=== PATIENT | female | born 2000 | race Caucasian/White ===

== ENCOUNTER 2022-12-11 16:35 | Emergency (ER) | payer BC, SELFPAY ==
[2022-12-11 17:01] VITALS: BP 101/68; PULSE 74; RESP 16; TEMP 36.8; O2SAT 99; BMI 29.5
--- NOTE | 2022-12-11 17:15 | CRLHL7_ITS ---
For Patients: As a result of the Century Cures Act, medical imaging exams and procedure reports are released immediately into your electronic medical record. You may view this report before your referring provider. If you have questions, please contact your health care provider. INDICATION: Leg pain and swelling. Seventeen weeks . TECHNIQUE: Ultrasound venous duplex lower left extremity. Compression venous exam was performed using harman-scale, color Doppler, and spectral Doppler analysis. COMPARISON: None. FINDINGS: Deep veins: Sonographic imaging demonstrates the left common femoral, deep femoral, superficial femoral, popliteal, posterior tibial and the contralateral right common femoral veins to be fully compressible with normal color Doppler blood flow. Superficial veins: Greater saphenous vein is fully compressible. No popliteal cyst. IMPRESSION: Normal left lower extremity venous ultrasound, no sign of deep venous thrombosis. Dictated by Aris Thompson MD @ 12/11/2022 6:37:36 PM (Electronically Signed)
--- NOTE | 2022-12-11 17:36 | ED.GENADULT ---
HPI - General Adult General Chief complaint: Extremity Pain/Injury, Lower Stated complaint: 17 weeks , l. leg pain Time Seen by Provider: 12/11/22 17:30 Source: patient Mode of arrival: ambulatory Limitations: no limitations History of Present Illness HPI narrative: Patient is a 22-year-old young woman who is 17 weeks with her 1st has been having some pain in her left calf for the past few days. 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 She had gone to the chiropractor today for some soreness in her hip, mentioned the calf, which led to a recommendation to call her clinic, which led to a recommendation to come to the ER. She has not had any swelling or redness. She has not had chest pain or shortness of breath. She has not had a history of DVT or PE, and aside from her grandmother having multiple mini strokes, there is no family history of hypercoagulability. has been uneventful with the exception of nausea. Related Data Home Medications Medication Instructions Recorded Confirmed cetirizine 10 mg tablet 10 mg PO DAILY 12/11/22 12/11/22 fluticasone 250 mcg-salmeterol 50 1 ea inhalation BID 12/11/22 12/11/22 mcg/dose blistr powdr for inhalation (Advair Diskus) montelukast 10 mg tablet 10 mg PO DAILY 12/11/22 12/11/22 ondansetron 4 mg disintegrating mg PO 12/11/22 tablet sertraline 50 mg tablet PO 12/11/22 Allergies Allergy/AdvReac Type Severity Reaction Status Date / Time latex Allergy Mild Rash Verified 12/11/22 17:06 Review of Systems Status of ROS: Reports: 10 or more systems reviewed and unremarkable except as noted in History and below [facility] Social History service: No Exam Narrative: Exam Narrative: Vital signs as noted above. In general, an alert, well-appearing patient. Head: Normocephalic, atraumatic. Eyes: Pupils are equal reactive. Extraocular movements are full. Conjunctivae are normal. ENT: Mucous membranes are moist. Extremities: Well perfused. No edema. She has an area of focal tenderness in the left calf, there is no erythema, no swelling, no fluctuance or defect in the muscle. This area runs from just distal to the posterior knee down to about mid calf. Neurologic: Patient is alert and oriented to person and place. Speech is fluent. Face is symmetric. Moves all extremities equally. Affect: Normal. Skin: Warm and dry. Well perfused. Const: Vital Signs, click to edit/add: Vital Signs - 24 hr 12/11/22 17:01 Temperature 98.2 F Pulse Rate [Pulse Oximeter] 74 Respiratory Rate 16 Blood Pressure [Ri ght Upper Arm] 101/68 Pulse Oximetry 99 Oxygen Delivery Me thod Room Air Documenting provider has reviewed patient's vital signs: yes Course Course Hospital Course: Patient had an ultrasound of the left lower extremity which is read by Radiology as negative for DVT. Symptoms seem to be muscular. She does not have any significant swelling, fluctuance, bruising or hematoma to suggest a muscle tear or plantaris rupture, she does not have any history of significant trauma either. Recommend Tylenol, ice. Keep an eye on this if it changes, if she develops redness or increasing pain or new symptoms such as fever she should be seen again. Vital Signs Vital signs: Initial Vital Signs Temperature 98.2 F 12/11/22 17:01 Temperature Source Temporal Artery Scan 12/11/22 17:01 Pulse Rate 74 12/11/22 17:01 Respiratory Rate 16 12/11/22 17:01 Blood Pressure 101/68 12/11/22 17:01 Blood Pressure Mean 79 12/11/22 17:01 Blood Pressure Position Sitting 12/11/22 17:01 Pulse Oximetry 99 12/11/22 17:01 Oxygen Delivery Method Room Air 12/11/22 17:01 Vital Signs Temperature 98.2 F 12/11/22 17:01 Pulse Rate 74 12/11/22 17:01 Respiratory Rate 16 12/11/22 17:01 Blood Pressure 101/68 12/11/22 17:01 Pulse Oximetry 99 12/11/22 17:01 Oxygen Delivery Method Room Air 12/11/22 17:01 Temperature 98.2 F 12/11/22 17:01 Pulse Rate 74 12/11/22 17:01 Respiratory Rate 16 12/11/22 17:01 Blood Pressure 101/68 12/11/22 17:01 Pulse Oximetry 99 12/11/22 17:01 Oxygen Delivery Method Room Air 12/11/22 17:01 Discharge Plan Discharge Clinical Impression: Pain of left calf Patient Disposition: Home, Self-Care Condition: Stable Instructions: Leg Pain (ED) Additional Instructions: Ice or Tylenol if needed. Return for worsening or severe pain, new symptoms such as redness or fever. Activity Level: No Restrictions Discharge Diet: Regular Prescriptions: No Action fluticasone propion-salmeterol [Advair Diskus] 250-50 mcg/dose blister with device 1 ea INHALATION BID cetirizine 10 mg tablet 10 mg PO DAILY montelukast 10 mg tablet 10 mg PO DAILY ondansetron 4 mg tablet,disintegrating PO sertraline 50 mg tablet PO Stand Alone Forms: [employer] Info Instructions
== END 2022-12-11 19:05 | disposition home or self-care (01) ==
LOC: ED 18:36
PROVIDERS: Emergency Provider Emergency Medicine; PCP Physician Assistant Medical
DX: M79.662 Pain in left lower leg (principal); Z3A.17 17 weeks gestation of pregnancy
CPT/HCPCS: 93971; 99283; 99284

== ENCOUNTER 2023-04-26 19:21 | Outpatient (CLI) | payer BC, SELFPAY ==
[2023-04-26 19:25] VITALS: BP 114/73; PULSE 86; RESP 21; TEMP 36.6; O2SAT 98; BMI 36.6
--- NOTE | 2023-04-26 19:58 | ED.GENADULT ---
HPI - General Adult General Time Seen by Provider: 19:59 Date Seen: 04/26/23 Chief complaint: Cough Stated complaint: Cough, chest pain Time Seen by Provider: 04/26/23 19:52 Source: patient and RN notes reviewed Mode of arrival: ambulatory Limitations: no limitations History of Present Illness HPI narrative: Lis is a 23-year-old female that is just over 36 weeks coming in with complaint of chest pain and cough, headache, jaw pain. She has been sick from post 2 weeks now, started with a sore throat. She had a negative strep and negative COVID done. 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 She has not had any fevers. This morphed into cough, congestion, body aches, otalgia but never any GI symptoms with that. Today she started having more chest discomfort, there is some pleuritic component with it but just feels like she has got chest discomfort. Patient reports she does have TMJ syndrome but jaw feels different than that. She has headache today. She is wondering if this is moved into bronchitis. Related Data Home Medications Medication Instructions Recorded Confirmed cetirizine 10 mg tablet 10 mg PO DAILY 12/11/22 12/11/22 fluticasone 250 mcg-salmeterol 50 1 ea inhalation BID 12/11/22 12/11/22 mcg/dose blistr powdr for inhalation (Advair Diskus) montelukast 10 mg tablet 10 mg PO DAILY 12/11/22 12/11/22 ondansetron 4 mg disintegrating mg PO 12/11/22 tablet sertraline 50 mg tablet PO 12/11/22 Previous Rx's Medication Instructions Recorded prednisone 20 mg tablet 20 mg PO BID #10 tabs 04/26/23 Allergies Allergy/AdvReac Type Severity Reaction Status Date / Time latex Allergy Mild Rash Verified 04/26/23 20:14 PFSH PFSH Social History Smoking Status: Never smoker How often do you have a drink containing alcohol: never How often do you have six or more drinks on one occasion: Never AUDIT-C Alcohol total score: 0 Non-prescribed substance use: denies use service: No Exam Const: Vital Signs, click to edit/add: Vital Signs - 24 hr 04/26/23 19:25 04/26/23 20:23 04/26/23 20:50 Temperature 97.9 F Pulse Rate [Right Pulse Oximeter] 86 92 Respiratory Rate 21 16 Blood Pressure [Ri ght Upper Arm] 114/73 113/73 Pulse Oximetry 98 98 98 Oxygen Delivery Me thod Room Air Room Air 04/26/23 22:00 04/26/23 22:22 Temperature Pulse Rate [Right Pulse Oximeter] 80 Respiratory Rate 16 Blood Pressure [Ri ght Upper Arm] 109/58 L Pulse Oximetry 100 Oxygen Delivery Me thod Room Air 23-year-old female is alert, interactive, no apparent distress, voice sounds hoarse but she is able to speak in complete sentences. Face atraumatic, sclera clear, pupils equal round reactive. TMs canals without any evidence of infection. Anterior nares normal. Oropharynx tremor co so, no exudates or erythema. Posterior pharynx looks normal. Neck is supple, no cervical adenopathy or masses. Lungs are clear, good air entry, no wheezing or crackles, no accessory muscle use. CV regular rate and rhythm no murmur. No lower extremity edema. Abdomen is gravid, nontender. Documenting provider has reviewed patient's vital signs: yes Course Course Hospital Course: Have discussed with patient the difficulty with her symptoms and the inability to the safely rule out pulmonary embolus without doing a PE study. She is 36 weeks and thus really no significant concern to the fetus for this study. We cannot rule out pulmonary embolus for her. I can do lab work and look at cardiac enzymes and other labs for her which she would like. Discussed doing chest x-ray instead of chest CT PE protocol. Risks and benefits of both approaches reviewed. Ultimately, she has chosen to proceed with chest CT PE protocol which is the only way I can safely completely rule out any concern of pulmonary embolus. Said she has been sick almost 2 weeks, no point in rechecking anything like COVID, would not alter management at this point. Reevaluation(s) Time of Reevaluation #1: 21:21 Reevaluation #1: Reviewed with the patient that her chest CT showing no pulmonary emboli, lungs are completely clear. We did review the mild anemia of her with a hemoglobin of 10.9. She is happy to know that there is nothing significantly wrong but we did review that this is likely just postinflammatory viral cough and maybe some asthma. She would like to try prednisone. She is now 36 weeks, this should be safe for her to take for her asthma if she needs a small dose. Otherwise, she is not having contractions but notes she has not felt the baby move here tonight, maybe has had diminished movement today. Ob will come down and do a NST on her. Time of Reevaluation #2: 22:40 Reevaluation #2: Patient is not passing her NST. We are going to discharge her from here and a we will take her for a biophysical profile. She will not need to remain in the ER for this, we will discharge from the ED in OB will assume care of this patient for the obstetrical issue. Vital Signs Vital signs: Initial Vital Signs Temperature 97.9 F 04/26/23 19:25 Temperature Source Temporal Artery Scan 04/26/23 19:25 Pulse Rate 86 04/26/23 19:25 Pulse Rhythm Regular 04/26/23 19:25 Pulse Strength 3+ Normal 04/26/23 19:25 Respiratory Rate 21 04/26/23 19:25 Blood Pressure 114/73 04/26/23 19:25 Blood Pressure Mean 86 04/26/23 19:25 Blood Pressure Position Sitting 04/26/23 19:25 Pulse Oximetry 98 04/26/23 19:25 Oxygen Delivery Method Room Air 04/26/23 19:25 Vital Signs Temperature 97.9 F 04/26/23 19:25 Pulse Rate 86 04/26/23 19:25 Respiratory Rate 21 04/26/23 19:25 Blood Pressure 114/73 04/26/23 19:25 Pulse Oximetry 98 04/26/23 19:25 Oxygen Delivery Method Room Air 04/26/23 19:25 Temperature 97.9 F 04/26/23 19:25 Pulse Rate 80 04/26/23 22:22 Respiratory Rate 16 04/26/23 22:22 Blood Pressure 109/58 L 04/26/23 22:00 Pulse Oximetry 100 04/26/23 22:22 Oxygen Delivery Method Room Air 04/26/23 22:22 Medical Decision Making Lab Data Lab results reviewed: Yes I reviewed the patient's lab results Labs: Lab Results 04/26/23 Range/Units 20:15 WBC 10.48 (4.50-11.00) K/uL RBC 4.01 (4.00-5.20) m/uL Hgb 10.9 L (12.0-16.0) gm/dL Hct 34.8 (33.0-51.0) % MCV 87 (80-100) fL MCH 27 (26-34) pg MCHC 31 L (32-36) gm/dL RDW Coeff of Hesham 14.0 (11.5-15.5) % Plt Count 192 (140-440) K/uL Neut % (Auto) 74.1 H (42.0-72.0) % Lymph % (Auto) 16.7 L (20-44) % [place] % (Auto) 8.0 (0.0-11.0) % Eos % (Auto) 0.4 (0.0-7.0) % Baso % (Auto) 0.1 (0.0-3.0) % Neut # (Auto) 7.80 H (1.7-7.0) K/uL Lymph # (Auto) 1.80 (0.90-2.90) K/uL [place] # (Auto) 0.80 (0.00-0.90) K/UL Eos # (Auto) 0.04 (0.00-0.50) K/uL Baso # (Auto) 0.01 (0.00-0.30) K/uL Abs Immat Gran (auto) 0.07 (0.00-0.30) K/uL Imm/Tot Granulo (auto) 0.7 % VBG pH 7.378 (7.32-7.43) VBG pCO2 44 (40-50) mmHG VBG pO2 41.6 (25-47) mmHG VBG HCO3 26 (21-28) mmol/L Sodium 138 (135-149) mmol/L Potassium 3.9 (3.6-5.1) mmol/L Chloride 106 (96-114) mmol/L Carbon Dioxide 25 (20-32) mmol/L Anion Gap 7 (7-15) mEq/L BUN 5 (5-24) mg/dL Creatinine 0.4 L (0.5-1.5) mg/dL Estimated Creat Clear 200.19 Estimated GFR 144 ml/min Glucose 85 (60-115) mg/dL Lactate 1.7 (0.5-1.9) mmol/L Calcium 9.3 (8.4-10.6) mg/dL Total Bilirubin 0.3 (0.1-1.5) mg/dL AST 22 (12-35) U/L ALT 18 (4-35) U/L Alkaline Phosphatase 137 (40-150) U/L Total Protein 6.9 (6.0-8.3) g/dL Albumin 3.7 (3.3-5.0) g/dL Imaging Data CT scan - chest: Attestation: I have reviewed the pertinent imaging results. Radiologist's impression: Patient: LIS LAYTON Facility:?[facility] Patient ID:?[id number] Site Patient ID:?[id number]. Site :?[id number] Study:?CT Chest Angio w/ 95cc isovue-370 PE Protocol-04/26/2023 8:30:17 PM Ordering Physician:Mary Chavez Final Report: INDICATION: Cough, shortness of breath, chest pain, 30 weeks TECHNIQUE: CT chest pulmonary PE protocol acquired with 95 cc Isovue 370 IV contrast. COMPARISON: None FINDINGS: Cardiovascular structures: Normal vascular enhancement of the pulmonary arteries, no sign of pulmonary embolism. Heart size is normal. No sign of aneurysm in the thoracic aorta. Mediastinum and emily: No mass or adenopathy. Lungs: Clear. Pleura and pericardium: No effusions. Chest wall and axilla: No mass or adenopathy. Upper abdomen: Unremarkable. Bones: No significant findings. IMPRESSION: No pulmonary embolism or acute intrathoracic abnormality. Please note that all CT scans at this facility use dose modulation, iterative reconstruction, and/or weight-based dosing when appropriate to reduce radiation dose to as low as reasonably achievable. Dictated by Cheryl Dalton MD @ 04/26/2023 8:58:28 PM (Electronic Signature) ECG Data Attestation: I personally reviewed and interpreted this ECG as follows: (Sinus rhythm, 86 beats per minute. No acute ischemic change. QT corrected 418 milliseconds.) Critical Care Time Critical Care Time Critical Care Time: No Discharge Plan Discharge Clinical Impression: Post-viral cough syndrome, Asthma Patient Disposition: Home, Self-Care Condition: Stable Instructions: Acute Cough (ED) Additional Instructions: Stay on current inhalers in medicines, add in prednisone and take as prescribed. This may help with some of the post inflammatory viral cough issues as well as stabilize any component of asthma that might be prominent with your symptoms. Recommend follow-up with your primary care provider if you have ongoing cough or issues. There is mild anemia with hemoglobin being 10.9, can share this when you see your conductor and engineer next. Activity Level: Activity as Tolerated Discharge Diet: Regular Prescriptions: New prednisone 20 mg tablet 20 mg PO BID Qty: 10 0RF No Action fluticasone propion-salmeterol [Advair Diskus] 250-50 mcg/dose blister with device 1 ea INHALATION BID cetirizine 10 mg tablet 10 mg PO DAILY montelukast 10 mg tablet 10 mg PO DAILY ondansetron 4 mg tablet,disintegrating PO sertraline 50 mg tablet PO Follow Up/Referrals: Olive Waters PA-C [Primary Care Provider] - Stand Alone Forms: [employer] Info Instructions
--- NOTE | 2023-04-26 20:06 | CRLHL7_ITS ---
For Patients: As a result of the Century Cures Act, medical imaging exams and procedure reports are released immediately into your electronic medical record. You may view this report before your referring provider. If you have questions, please contact your health care provider. INDICATION: Cough, shortness of breath, chest pain, 30 weeks TECHNIQUE: CT chest pulmonary PE protocol acquired with 95 cc Isovue 370 IV contrast. COMPARISON: None FINDINGS: Cardiovascular structures: Normal vascular enhancement of the pulmonary arteries, no sign of pulmonary embolism. Heart size is normal. No sign of aneurysm in the thoracic aorta. Mediastinum and emily: No mass or adenopathy. Lungs: Clear. Pleura and pericardium: No effusions. Chest wall and axilla: No mass or adenopathy. Upper abdomen: Unremarkable. Bones: No significant findings. IMPRESSION: No pulmonary embolism or acute intrathoracic abnormality. Please note that all CT scans at this facility use dose modulation, iterative reconstruction, and/or weight-based dosing when appropriate to reduce radiation dose to as low as reasonably achievable. Dictated by Cheryl Dalton MD @ 04/26/2023 8:58:28 PM (Electronically Signed)
[2023-04-26 20:23] VITALS: O2SAT 98
[2023-04-26 20:24] LABS: HCO3 VBG 26 mmol/L (21-28); Lactate* 1.7 mmol/L (0.5-1.9); PCO2 VBG 44 mmHG (40-50); PO2 VBG 41.6 mmHG (25-47); pH VBG 7.378 (7.32-7.43)
[2023-04-26 20:27] LABS: Basophils Absolute Auto 0.01 K/uL (0.00-0.30); Basophils Percent Auto 0.1 % (0.0-3.0); Eosinophils Absolute Auto 0.04 K/uL (0.00-0.50); Eosinophils Percent Auto 0.4 % (0.0-7.0); Hematocrit 34.8 % (33.0-51.0); Hemoglobin* 10.9 gm/dL (12.0-16.0); Immature Granulocytes Abs Auto 0.07 K/uL (0.00-0.30); Immature Granulocytes Pct Auto 0.7 %; Lymphocytes Percent Auto 16.7 % (20-44); Mean Corpuscular HGB Conc 31 gm/dL (32-36); Mean Corpuscular Hemoglobin 27 pg (26-34); Mean Corpuscular Volume 87 fL (80-100); Neutrophils Percent Auto 74.1 % (42.0-72.0); Platelet Count* 192 K/uL (140-440); Red Blood Count 4.01 m/uL (4.00-5.20); White Blood Count* 10.48 K/uL (4.50-11.00)
[2023-04-26 20:30] LABS: Slide Review Reflex No
[2023-04-26] MEDS: 0.9 % SODIUM CHLORIDE 1000 ml 1,000 ML 500 ML IV (20:33)
[2023-04-26 20:50] VITALS: BP 113/73; PULSE 92; RESP 16; O2SAT 98
[2023-04-26 20:51] LABS: Albumin* 3.7 g/dL (3.3-5.0)
[2023-04-26 20:52] LABS: Chloride* 106 mmol/L (96-114); Potassium* 3.9 mmol/L (3.6-5.1); Sodium* 138 mmol/L (135-149)
[2023-04-26 20:54] LABS: Anion Gap 7 mEq/L (7-15); Aspartate Amino Transferase* 22 U/L (12-35); Bilirubin Total* 0.3 mg/dL (0.1-1.5); Carbon Dioxide* 25 mmol/L (20-32); Creatinine* 0.4 mg/dL (0.5-1.5); Est. Creatinine Clearance* 200.19; Estimated Glomerular Filt Rate 144 ml/min
[2023-04-26 20:55] LABS: Alanine Aminotransferase* 18 U/L (4-35); Alkaline Phosphatase* 137 U/L (40-150); Blood Urea Nitrogen* 5 mg/dL (5-24); Calcium* 9.3 mg/dL (8.4-10.6); Glucose* 85 mg/dL (60-115); Total Protein* 6.9 g/dL (6.0-8.3)
[2023-04-26 22:00] VITALS: BP 109/58
[2023-04-26 22:22] VITALS: PULSE 80; RESP 16; O2SAT 100
--- NOTE | 2023-04-26 22:46 | CRLHL7_ITS ---
For Patients: As a result of the Century Cures Act, medical imaging exams and procedure reports are released immediately into your electronic medical record. You may view this report before your referring provider. If you have questions, please contact your health care provider. INDICATION: Nonreactive stress test. TECHNIQUE: Ultrasound OB pelvis transabdominal. Real-time harman-scale imaging of the fetus was performed without stress testing. COMPARISON: None.. FINDINGS: Sonographic imaging demonstrates a single living intrauterine gestation. Fetus demonstrates a regular cardiac rate of 134 beats per minute. Fetus has a cephalic orientation. Amniotic fluid volume single deepest pocket 7.0 cm 2/2. motion 2/2. tone 2/2. breathing movements 2/2. IMPRESSION: Single live intrauterine with a biophysical profile 04/03. Dictated by Torsten Wilburn MD @ 04/26/2023 11:50:37 PM (Electronically Signed)
--- NOTE | 2023-04-26 23:57 | PC.OBNST ---
NST Note NST Note Start: 04/26/23 21:44 Freq: ONCE Status: Active Protocol: Document 04/26/23 23:55 AM (Rec: 04/26/23 23:57 AM [id number]) NST Note 1 Para (# of births) 0 EDC 05/22/23 Gestational Age In Weeks & Days 36 Weeks & 2 Days Patient Presented with Complaint(s) of Decreased movement Reactive Yes Appropriate for Gestational Age Yes RN eder Date 04/26/23 Reactive Yes Appropriate for Gestational Age Yes RN yolette Date 04/26/23 OB NST charge Yes Complete NST Note via Write Note Yes The provider's electronic signature indicates the NST is reactive/appropriate for gestational age. *Note to provider: If an addendum is required, open the patient's chart and click on the note under the Nurse/Allied Health tab.
== END 2023-04-26 23:50 | disposition home or self-care (01) ==
LOC: ED 21:27 → OB OUT 22:43 → OB 22:44
PROVIDERS: Emergency Provider Family Medicine; PCP Physician Assistant Medical; Visit Provider Family Medicine
DX: O36.8130 Decreased fetal movements, third trimester, not applicable or unspecified (principal); Z3A.36 36 weeks gestation of pregnancy
CPT/HCPCS: 36415; 59025; 71275; 76819; 80053; 82803; 83605; 85025; 93005; 94761; 99213; 99284; J7030; Q9967

== ENCOUNTER 2023-05-05 22:43 | Outpatient (CLI) | payer BC, SELFPAY ==
[2023-05-05 22:59] VITALS: BP 130/80; PULSE 93
[2023-05-05] MEDS: LACTATED RINGERS 500 ML 500 ML IV (23:54)
[2023-05-06] MEDS: ONDANSETRON 2 MG/ML inj 4 MG IV (00:14)
[2023-05-06 03:40] LABS: Appearance Urine Clear (Clear); Bilirubin Urine Negative (Negative); Blood Urine 3+ (Negative); Color Urine Yellow (Yellow); Glucose Urine Negative (Negative); Ketones Urine 1+ (Negative); Leukocyte Esterase Urine 1+ (Negative); Nitrite Urine Negative (Negative); Protein Urine Trace (Negative); Urobilinogen Urine 0.2 (0.2-1.0)
[2023-05-06 03:48] LABS: Bacteria Urine Few; Squamous Epithelial Cell Urine Few (None-Few)
--- NOTE | 2023-05-06 04:00 | PC.OBNST ---
NST Note NST Note Start: 05/05/23 22:51 Freq: ONCE Status: Active Protocol: Document 05/06/23 03:57 [facility] (Rec: 05/06/23 03:59 [facility] [id number]) NST Note 1 Para (# of births) 0 EDC 05/22/23 Gestational Age In Weeks & Days 37 Weeks & 5 Days Patient Presented with Complaint(s) of Contractions/cramping Reactive Yes Appropriate for Gestational Age Yes TED Severino RN Date 05/06/23 Reactive Yes Appropriate for Gestational Age Yes TED Timmons RN Date 05/06/23 OB NST charge Yes Complete NST Note via Write Note Yes The provider's electronic signature indicates the NST is reactive/appropriate for gestational age. *Note to provider: If an addendum is required, open the patient's chart and click on the note under the Nurse/Allied Health tab.
== END 2023-05-06 04:00 | disposition home or self-care (01) ==
LOC: OB OUT 22:44 → OB 22:44
PROVIDERS: PCP Physician Assistant Medical; Visit Provider Surgery
DX: O47.1 False labor at or after 37 completed weeks of gestation (principal); Z3A.37 37 weeks gestation of pregnancy
CPT/HCPCS: 59025; 81003; 81015; 87086; 99213; J2405; J7120

== ENCOUNTER 2023-05-06 17:24 | Outpatient (CLI) | payer BC, SELFPAY ==
[2023-05-06 17:41] VITALS: BP 129/77; PULSE 107; RESP 20; TEMP 36.8; O2SAT 97
[2023-05-06 20:03] VITALS: BP 119/74; PULSE 81
--- NOTE | 2023-05-06 22:33 | PC.OBNST ---
NST Note NST Note Start: 05/06/23 17:26 Freq: ONCE Status: Active Protocol: Document 05/06/23 22:30 [facility] (Rec: 05/06/23 22:33 [facility] [id number]) NST Note 1 Para (# of births) 0 EDC 05/22/23 Gestational Age In Weeks & Days 37 Weeks & 5 Days Patient Presented with Complaint(s) of Contractions/cramping Reactive Yes Appropriate for Gestational Age Yes TED Severino RN Date 05/06/23 Reactive Yes Appropriate for Gestational Age Yes TED Boyd RN Date 05/06/23 OB NST charge Yes Complete NST Note via Write Note Yes The provider's electronic signature indicates the NST is reactive/appropriate for gestational age. *Note to provider: If an addendum is required, open the patient's chart and click on the note under the Nurse/Allied Health tab.
== END 2023-05-06 22:34 | disposition home or self-care (01) ==
LOC: OB OUT 17:24 → OB 17:25
PROVIDERS: PCP Physician Assistant Medical; Visit Provider Surgery
DX: O47.1 False labor at or after 37 completed weeks of gestation (principal); Z3A.37 37 weeks gestation of pregnancy
CPT/HCPCS: 59025; 99213

== ENCOUNTER 2023-05-08 14:16 | Inpatient (IN) | payer BC, SELFPAY ==
[2023-05-08] VITALS (58 sets, daily range): BP systolic 84–132; BP diastolic 49–82; PULSE 74–118; RESP 16–18; TEMP 36.4–37.1; O2SAT 90–100; BMI 35.4
[2023-05-08 14:13] LABS: Amnisure Rom* POSITIVE
--- NOTE | 2023-05-08 17:18 | P.OBHP_ITS ---
OB - H&P: HPI Labor/Induction History of Present Illness Time Seen by Provider: 17:18 Date Seen: 05/08/23 Chief Complaint: The patient is a 23 year old 1 para 0 at 38.0 weeks gestation by LMP and consistent with 8 week ultrasound , who presents with SROM. Patient has been in early labor off and on for the last 4 days. Had 2 Labor rule out visits this weekend. Today at 1230 she was sitting in bed and felt large gush of fluid. Came to labor and delivery and amnisure was positive. Chief complaint: Maternity : 1 Para: 0 Date of last menstrual period: 08/15/22 Estimated date of delivery: 05/22/23 Gestational age based on last menstrual period: 38 Narrative: Lis Cotter is a 23 year old female History of Present Dating criteria: based on LMP care: good care Ultrasounds: normal 1st trimester US Abnormal ultrasound findings: IMPRESSION: Sonographic gestational age 19 weeks 1 day and sonographic due date 05/29/2023. Sonographic age 1 week behind the clinical age. Estimated weight 27th percentile. Abdominal circumference 21st percentile. Incomplete visualization of the spine due to position. Short-term follow- up recommended. Remainder of the anatomic survey is normal. Repeat ultrasound: IMPRESSION: Normal cervical, thoracic, lumbar and sacral spine. Medical complications: respiratory (Asthma exacerbation requiring prednisone ) Labs Blood type: A (+) positive Rubella: immune RPR/VDLR: nonreactive GBS status: negative HBsAG: negative Review of Systems Status of ROS: Reports: 10 or more systems reviewed and unremarkable except as noted in History and below Meds Home Medications and Allergies Home Medications Medication Instructions Recorded Confirmed Type cetirizine 10 mg tablet 10 mg PO DAILY 12/11/22 05/08/23 History fluticasone 250 mcg-salmeterol 50 1 ea inhalation BID 12/11/22 05/08/23 History mcg/dose blistr powdr for inhalation (Advair Diskus) montelukast 10 mg tablet 10 mg PO DAILY 12/11/22 05/08/23 History ondansetron 4 mg disintegrating 4 mg PO Q12H 12/11/22 05/08/23 History tablet sertraline 50 mg tablet 75 mg PO Q24H 12/11/22 05/08/23 History famotidine 20 mg tablet 20 mg PO BID 05/05/23 05/08/23 History Allergies Allergy/AdvReac Type Severity Reaction Status Date / Time latex Allergy Mild Rash Verified 05/05/23 22:51 OB - H&P: Exam Physical Exam: Vital signs: Temp Pulse BP Pulse Ox 98.2 F 97 124/72 98 05/08/23 17:04 05/08/23 16:03 05/08/23 16:03 05/08/23 13:58 Constitutional: Constitutional: no acute distress Routine HEENT Exam: Head: Present atraumatic and normal inspection ENT: Present mucous membranes moist Routine Neck Exam: Neck: Present full ROM Routine Chest/Breast/Axilla Exam: Chest wall: Absent tenderness Routine Respiratory Exam: Respiratory: Present CTA bilaterally; Absent crackles or wheezes Routine Cardiovascular Exam: Cardiovascular: RRR, S1 and S2 Routine Abdominal Exam: Abdominal: Present soft Detailed Labor and Delivery Exam: Patient Gravid: Yes Dilation (cm): 3 Effacement (%): 80 Cervix position: anterior Consistency: medium Cervical ripeness score: 9 Tachysystole: No Contraction intensity: Moderate Fetus (Single): Station: -2 Amniotic Membrane Status: SROM Routine Back/Spine/Pelvis Exam: Back/Spine: full ROM Routine Skin Exam: Present intact Routine Neurological Exam: Present alert and oriented X3 OB - Problem Based A/P Additional Plan (1) SROM (spontaneous rupture of membranes): Start date: 05/08/23 Start time: 12:30 Problem details: SROM at home at 1230, clear fluid Status: Acute (2) Term : Status: Acute Plan - no significant change since admission to L&D. Maxwell score shows favorable ce rvix. Will start pitocin per protocol. Anticipate Delivery/Labor/Induction Plan Plan: induction Induction method: per pitocin protocol
[2023-05-08] MEDS: LACTATED RINGERS 1000 ML 1,000 ML 125 ML IV ×2 (18:24→20:06)
[2023-05-08] MEDS: ROPIVACAINE 0.2% 100 ml 100 ML 12 MG EPIDURAL (19:45)
[2023-05-08] MEDS: LIDOCAINE 2% (PF) 5 ML VIAL EPIDURAL (19:45)
[2023-05-08] MEDS: fentaNYL 250 MCG/5 ML inj 100 MCG EPIDURAL (19:50)
[2023-05-08] MEDS: PHENYLEPHRINE 100 MCG/ML SYRINGE IVP ×5 (19:55→22:47)
--- NOTE | 2023-05-08 20:01 | PM.ANBPRC ---
[facility] Social History What is your current living situation?: I presently have a place to live Problems where you live: no known problems In the past 12 months, utilities in danger of being shut off: no In the past 12 mos, have been you worried that your food would run out before you had money to buy more?: never true In the past 12 mos, the food you bought just didn't last and you didn't have money to buy more?: never true Smoking Status: Never smoker How often do you have a drink containing alcohol: never How often do you have six or more drinks on one occasion: Never AUDIT-C Alcohol total score: 0 Non-prescribed substance use: denies use How often does anyone, including family, friends and others, physically hurt you: never How often does anyone, including family, friends and others, insult or talk down to you: never How often does anyone, including family, friends and others, threaten you with harm: never How often does anyone, including family, friends and others, scream or curse at you: never service: No Meds Home Medications and Allergies Home Medications Medication Instructions Recorded Confirmed Type cetirizine 10 mg tablet 10 mg PO DAILY 12/11/22 05/08/23 History fluticasone 250 mcg-salmeterol 50 1 ea inhalation BID 12/11/22 05/08/23 History mcg/dose blistr powdr for inhalation (Advair Diskus) montelukast 10 mg tablet 10 mg PO DAILY 12/11/22 05/08/23 History ondansetron 4 mg disintegrating 4 mg PO Q12H 12/11/22 05/08/23 History tablet sertraline 50 mg tablet 75 mg PO Q24H 12/11/22 05/08/23 History famotidine 20 mg tablet 20 mg PO BID 05/05/23 05/08/23 History Allergies Allergy/AdvReac Type Severity Reaction Status Date / Time latex Allergy Mild Rash Verified 05/05/23 22:51 Results Labs Labs: Laboratory Results - last 24 hr 05/08/23 13:57 Membrane Rupture POSITIVE Vital Signs Vital Signs: Last Vital Signs Temp 98.8 F 05/08/23 18:55 Pulse 104 H 05/08/23 20:01 BP 98/57 L 05/08/23 20:01 Pulse Ox 99 05/08/23 19:40 Weight: 96.615 kg Height: 165.1 cm Anesthesia Procedures Epidural Insertion Patient Location: OB Start Time: Stop Time: :15 Start Date: 05/08/23 Stop Date: 05/08/23 Reason for Block: primary anesthetic Patient Position: sitting Performed By: Mervin Torres Preanesthetic Checklist: IV checked, risks and benefits discussed, surgical consent, monitors and equipment checked, pre-op evaluation, timeout performed and anesthesia consent Prep: chlorhexidine gluconate Monitoring: blood pressure monitoring, quality assurance monitor final, continuous pulse oximetry and heart rate Approach: midline Vertebral Space: lumbar (1-5) Needle Type: Tuohy needle Injection Technique: continuous catheter Needle gauge: 17 Needle Length (cm): 10 cm Needle Insertion Depth (cm): 6 Catheter Gauge: 19 Catheter Type: multi-orifice Catheter at skin depth (cm): 12 Test Dose Result: negative and lidocaine 1.5% with epinephrine 1 to 200,000 Events: other
[2023-05-08] MEDS: ePHEDrine sulfate 5 MG/ML inj 10 MG IVP ×2 (20:09→20:33)
[2023-05-08] MEDS: LACTATED RINGERS 1000 ML 1,000 ML 925 ML IV (21:08)
--- NOTE | 2023-05-08 23:34 | PM.OBPNL ---
Subjective Time Seen by Provider: 23:34 Date Seen: 05/08/23 Narrative: Patient has progressed well. We had anticipated starting pitocin, but patient actually felt much stronger contractions and made cervical change without intervention. We have continued expectant management. Received epidural for analgesia with good response. Did have significant hypotension requiring fluid bolus and medications following epidural (had some late decels and loss of variability). FHT have improved. At this time, patient is complete and +2. We discussed with patient the option of laboring down, which patient is agreeable to do at this time. Baby has category 1 strip at this time. Objective Vital Signs: Last Vital Signs Temp 98.4 F 05/08/23 21:01 Pulse 107 H 05/08/23 23:21 Resp 18 05/08/23 21:01 BP 108/55 L 05/08/23 23:21 Pulse Ox 99 05/08/23 19:40 Pelvic Exam Dilation (cm): 10 Station: +2 Contractions Monitor mode: External Contraction Frequency: 2-3 Contraction pattern: Regular Contraction intensity: Strong/Firm Pitocin Rate (mU/min): 0 Assessment Assessment: active labor Station: -2 Amniotic Membrane Status: SROM Status: Category l Heart Rate Baseline: 140 [facility] Variability: Moderate (6-25) Monitor Accelerations: Present Monitor Decelerations: None Plan Plan: - will initiate pushing after period of laboring down - anticipate
[2023-05-09] VITALS (18 sets, daily range): BP systolic 95–148; BP diastolic 53–80; PULSE 81–120; RESP 16–18; TEMP 36.6–36.8; O2SAT 96–98
[2023-05-09] MEDS: LACTATED RINGERS 1000 ML 1,000 ML 525 ML IV (00:34)
[2023-05-09] MEDS: OXYTOCIN 30 unit/500 ML in NS 30 UNIT/500 ML BAG 300 UNIT IVPB (00:46)
--- NOTE | 2023-05-09 01:15 | W.PM.OBVAGDE ---
OB Procedure Vag Delivery Mother Details Mother Details: The patient is a 23 year-old, 1, Para 0, admitted on 05/08/23 at 38.0 Days gestation with SROM and progressed to active labor. : 1 Para: 0 Weeks Gestation: 38.1 Admission Date: 05/08/23 Additional Details Amniotic Membrane Status: SROM Amniotic Membrane Rupture Date: 05/08/23 Amniotic Membrane Rupture Time: 12:30 Amniotic Membrane Fluid Description: Clear Analgesia/Anesthesia Type: Epidural Waterbirth: No Pitcoin: No Intrapartal Events: None Labor Onset: 19:00 Complete: 22:41 Pushin:56 Heart: heart tones during second stage were category 1 Delivery Details Delivery Date: 05/09/23 Delivery Time: 00:39 Route of delivery: Gender: Male Viability: Alive; Heart Rate Present Position at Delivery: OA Delivery Details: Patient was admitted after SROM at 1230 on 05/08/2023. She progressed well with contractions without intervention. Received epidural for analgesia with good response. Patient did have hypotension after epidural requiring additional fluid boluses and medications. Baby did have some late decels during that time, but recovered well once blood pressure improved. She became complete at 2241. She labored down and began pushing at 2356. She pushed very effectively and Delivered over intact perineum via spontaneous vaginal delivery at 0039. Infant was placed on maternal abdomen.? Cord was clamped and cut by FOB after a 30-60 second delay. Nose and mouth were bulb suctioned.? Infant weight 3350 grams. Placenta delivered spontaneously at 0046 and had 3 vessel cord. 2nd degree laceration was repaired with 3-0 Vicryl. NO lidocaine was required due to good analgesia from epidural. QBL 50. Sponge and sharp count are correct. 1 Minute Interval Total Score: 9 5 Minute Interval Total Score: 9 Additional Details Shoulder Dystocia: No Placenta Delivery Time: 00:46 Placental Delivery Description: Spontaneous Delivery repair: Vicryl Blood Loss: 50 Laceration: Perineal - 2nd Degree (and small 1st deg periurethral that did not require repair. ) Episiotomy Description: None Blood Loss Measurement Type: QBL Bakri Used: No Sponge/Need Count Correct: Yes Cord Vessel Description: 3 Vessels Event Summary Status: Mother and were stable after delivery. Disposition: no change
[2023-05-09] MEDS: IBUPROFEN 600 MG TABLET PO ×3 (01:23→19:51)
[2023-05-09] MEDS: ACETAMINOPHEN 500 MG TABLET 1000 MG PO (18:18)
[2023-05-09] MEDS: LANOLIN CREAM 1 APPLIC TOPICAL (21:08)
[2023-05-10 01:16] VITALS: BP 116/75; PULSE 96; RESP 16; TEMP 36.6; O2SAT 98
[2023-05-10] MEDS: IBUPROFEN 600 MG TABLET PO (01:22)
[2023-05-10 07:07] LABS: Hemoglobin* 11.5 gm/dL (12.0-16.0)
--- NOTE | 2023-05-10 07:51 | PM.OBDSVD1 ---
DS: Providers Provider Time Seen by Provider: 07:52 Date Seen: 05/10/23 Date of admission: 05/08/23 14:16 Primary care physician: Olive Waters PA-C Admitting Clinician: Magdalene Newell MD Attending Physician on discharge: Magdalene Newell MD Date of Discharge: 05/10/23 DS: Diagnosis Discharge Diagnosis (1) Term : Status: Acute (2) Normal vaginal delivery: Status: Acute Exam Const: Vital Signs, click to edit/add: Vital Signs - 24 hr 05/09/23 08:04 05/09/23 12:34 05/09/23 16:10 Temperature 97.8 F 98.2 F 97.9 F Pulse Rate [Pulse Oximeter] 91 103 H 103 H Respiratory Rate 16 16 16 Blood Pressure [Le ft Arm] 107/68 111/75 117/80 Pulse Oximetry 96 97 Oxygen Delivery Me thod Room Air Room Air Room Air 05/09/23 19:48 05/10/23 01:16 Temperature 97.9 F 97.8 F Pulse Rate [Pulse Oximeter] 105 H 96 Respiratory Rate 18 16 Blood Pressure [Le ft Arm] 123/80 116/75 Pulse Oximetry 98 98 Oxygen Delivery Me thod Room Air Room Air Common normals: no apparent distress, healthy appearing, alert and well nourished Orientation/consciousness: Yes awake : Uterus: U/1 Lochia: scant Uterus palpation: uterus nontender Neuro: Sensorium/orientation: awake and alert OB - DS: Summary Hospital Course Hospital Course: The patient is a 23 year old G 1 P 0 at 38 weeks gestation that was admitted to the Center on 05/08/23 for SROM. She had an uncomplicated vaginal delivery. She delivered a viable male infant. She is and supplementing. the patient has done well. No concerns Peripartum Data Infant delivery method: Vaginal Laceration description: Perineal - 2nd Degree complications: none [place] Gender: Male Infant Discharge Plan: Home Time Spent with Patient Time attestation: Total time spent providing and/or coordinating discharge services: Discharge Plan Discharge Disposition: Home, Self-Care Date of Admission: 05/08/23 14:16 Attending Provider on Discharge: Rosio Loera Primary Care Provider: Olive Waters Condition: Stable Anticipated Discharge Date/Time: 05/10/23 07:56 Discharge Medications: New cholecalciferol (vitamin D3) [Vitamin D3] 50 mcg (2,000 unit) tablet 100 mcg PO DAILY Qty: 180 3RF acetaminophen 500 mg Tablet 1,000 mg PO Q6H PRNQty: 30 0RF ibuprofen 600 mg Tablet 600 mg PO Q6H PRNQty: 30 0RF Continued fluticasone propion-salmeterol [Advair Diskus] 250-50 mcg/dose blister with device 1 ea INHALATION BID cetirizine 10 mg tablet 10 mg PO DAILY montelukast 10 mg tablet 10 mg PO DAILY Hold Instructions: not needed sertraline 50 mg tablet 75 mg PO Q24H famotidine 20 mg tablet 20 mg PO BID Discontinued ondansetron 4 mg tablet,disintegrating 4 mg PO Q12H Discharge Orders: Discharge Order (Routine); Ordered 05/10/23 Ordered By: Rosio Loera Patient Education: OB Vaginal/Breast Feeding Activity Detail: pelvic rest x 6 weeks (no intercourse or tampons x 6wks) Discharge Diet: Regular Follow Up Appointments: Olive Waters PAKarl [Primary Care Provider] - Magdalene Newell MD [Staff Physician] - (schedule 6 week visit) [facility] Inst[facility]
[2023-05-10 08:00] VITALS: BP 110/72; PULSE 90; RESP 16; TEMP 36.6; O2SAT 98
== END 2023-05-10 12:00 | disposition home or self-care (01) | DRG 560 ==
LOC: OB OUT 14:16 → OB 14:16
PROVIDERS: Surgery; Admitting Provider Family Medicine; PCP Physician Assistant Medical; Visit Provider Family Medicine
DX: O70.1 Second degree perineal laceration during delivery (principal); Z3A.38 38 weeks gestation of pregnancy; Z37.0 Single live birth; O74.6 Other complications of spinal and epidural anesthesia during labor and delivery; I95.89 Other hypotension
CPT/HCPCS: 01967; 36415; 84112; 85018; A9270; J2371; J2795; J3010; J7120

== ENCOUNTER 2023-10-13 04:40 | Emergency (ER) | payer BC, SELFPAY ==
[2023-10-13 04:46] VITALS: BP 130/87; PULSE 102; RESP 16; TEMP 36.2; O2SAT 98; BMI 36.6
--- OUTSIDE RECORDS SUMMARY | 2023-10-13 05:26 | XMS_ITS | Clinical Summary ---
Author Name Unknown Organization [facility] Address [address] [place] [address] Care Team Providers Care Gradall Operator Name Role Phone Unavailable Primary Care Provider Unavailabl e Source Comments Patient records contain information from all sites at [facility]. For routine questions regarding patient records, call [phone] during business hours, M-F 8:00 AM - 5:00 PM Central Time. Record requests for emergency care only can be directed to [phone] at any time.[facility] Family History Medical History Relation Name Comments Healthy adult Father Healthy adult Mother Relation Name Status Comments Father Mother Social History Tobacco Use Types Packs/Day Years Used Date Smoking Tobacco: Never Nutrition Answer Date Recorded Nutrition: EVOO Fat Source Unknown 09/19 Nutrition: Servings of Fruits/Vegetables per Day Not on file 09/19/2022 Dental Answer Date Recorded Dental: Regular Dentist Unknown 09/19/19 23 Sex and Gender Information Value Date Recorded Sex Assigned at Not on file Gender Identity Not on file Sexual Orientation Not on file Last Filed Vital Signs Vital Sign Reading Time Taken Comments Blood Pressure - - Pulse - - Temperature - - Respiratory Rate - - Oxygen Saturation - - Inhaled Oxygen Concentration - - Weight 62.5 kg (137 lb 12.6 oz) 04/20/2016 4:01 PM CDT Height 161 cm (5' 3.39) 04/20/2016 4:01 PM CDT Body Mass Index 24.11 04/20/2016 4:01 PM CDT Plan of Treatment Health Maintenance Due Date Last Done Comments Cervical Cancer Screening 2002 Chlamydia and Gonorrhea Screening 2002 HIV Screening 2002 Hearing Screening during Well Child Visit 2002 Hepatitis C Screening 2002 1 week Well Child Check-Up 2002 1 month Well Child Check-Up 2002 2 month Well Child Check-Up 2002 4 month Well Child Check-Up 2002 6 month Well Child Check-Up 2002 9 month Well Child Check-Up 2002 12 month Well Child Check-Up 2002 15 month Well Child Check-Up 03/13/2003 18 month Well Child Check-Up 06/13/2003 2 year Well Child Check-Up 12/13/2003 30 month Well Child Check-Up 06/13/2004 3 year Well Child Check-Up 12/12/2004 Well Child Check-Up Completed in Past Year 12/12/2004 4 year Well Child Check-Up 12/12/2005 5 year Well Child Check-Up 12/12/2006 6 year Well Child Check-Up 12/13/2007 7 year Well Child Check-Up 12/12/2008 8 year Well Child Check-Up 12/12/2009 9 year Well Child Check-Up 12/12/2010 10 year Well Child Check-Up 12/13/2011 11 year Well Child Check-Up 12/12/2012 12 year Well Child Check-Up 12/12/2013 13 year Well Child Check-Up 12/12/2014 14 year Well Child Check-Up 12/13/2015 15 year Well Child Check-Up 12/12/2016 16 year Well Child Check-Up 12/12/2017 17 year Well Child Check-Up 12/12/2018 18 year Well Child Check-Up 12/13/2019 19 year Well Child Check-Up 12/12/2020 22 year Well Child Check-Up 12/12/2021 23 year Well Child Check-Up 12/12/2022 Well Child Check-Up ([facility]) 12/12/2022 COVID-19 Vaccine (2022-24 season) 2023 07/23/2021, 01/20/2021, 12/16/2020 Influenza Vaccine (#1) 2023 , 06/22/2021, 06/11/2020, Additional history exists Depression Screening (Annual PHQ-2) 08/27/2023 DTaP,Tdap,and Td Vaccines (8 - Td or Tdap) 03/02/2033 03/02/2023, 04/22/2014, 01/28/2007, Additional history exists Hepatitis B Vaccines Completed 01/13/2003, 2002, 2002 Pneumococcal vaccine (0-64 years) Aged Out 08/17/2003, 04/28/2003, 01/13/2003, Additional history exists No longer eligible based on patient's age to complete this topic HPV Vaccines Completed 12/09/2014, 07/27, 06/18/2014 Meningococcal Vaccine Completed 04/09/2018, 014
--- OUTSIDE RECORDS SUMMARY | 2023-10-13 05:26 | XMS_ITS | Referral Summary ---
Author Name Unknown Organization [facility] Address [address] [place] [address] Care Team Providers Care Set Up Machinist Name Role Phone Unavailable Primary Care Provider Unavailabl e Source Comments Patient records contain information from all sites at [facility]. For routine questions regarding patient records, call [phone] during business hours, M-F 8:00 AM - 5:00 PM Central Time. Record requests for emergency care only can be directed to [phone] at any time.[facility] Social History Tobacco Use Types Packs/Day Years [...] 04/20/2016 4:01 PM CDT Plan of Treatment Not on file
--- OUTSIDE RECORDS SUMMARY | 2023-10-13 05:26 | XMS_ITS ---
Author Name Unknown Organization [facility] Address [address] [place] [address] Care Team Providers Care Vice President Planning Name Role Phone Unavailable Unavailable Unavailable Surgery Details Not on file Complications Check Surgery Details section. Procedure Estimated Blood Loss Check Surgery Details section. Procedure Findings Check Surgery Details section. Procedure Specimens Taken Check Surgery Details section.
--- NOTE | 2023-10-13 05:28 | ED_ITS ---
HPI - General Adult General Chief complaint: Back Injury/Pain Stated complaint: Backpain Time Seen by Provider: 10/13/23 04:56 Source: patient Mode of arrival: ambulatory Limitations: no limitations History of Present Illness HPI narrative: 23-year-old female presents the emergency department in the middle of night for evaluation of back pain. This is an ongoing issue. She reports injury 2 years ago. Actually has had a recent MRI and now has had a referral to sports Medicine for management. Reports that she did physical therapy a couple of years ago and continues to occasionally do some stretches but no regular physical therapy program. States that she messaged her provider was given a refill of Flexeril recently but has not seen her provider in person. Reports use of ibuprofen 400 mg 3 times daily and Tylenol 1000 mg 3 times daily with inadequate relief of her pain. Pain is worse with bending, movement. No weakness in the legs, no loss of bowel or bladder function. The MRI did show herniated discs at L3 and L5 per her report with some foraminal narrowing. No new trauma or injury. No rash on the legs. No loss of function. She reports that she was unable to sleep and presents to the emergency department for further management. No fever, no recent signs of illness. Pain does not radiate currently. Has not been on steroids during this recent flare up. Past medical history notable for uncomplicated and delivery as well as a history of asthma. Long-term medications sertraline, Zyrtec, Singulair and Advair. ROS notable for the musculoskeletal symptoms as described above only, otherwise denies times 12 systems. Related Data Home Medications Medication Instructions Recorded Confirmed cetirizine 10 mg tablet 10 mg PO DAILY 12/11/22 10/13/23 fluticasone 250 mcg-salmeterol 50 1 ea inhalation BID 12/11/22 10/13/23 mcg/dose blistr powdr for inhalation (Advair Diskus) montelukast 10 mg tablet 10 mg PO DAILY 12/11/22 10/13/23 sertraline 50 mg tablet 75 mg PO Q24H 12/11/22 10/13/23 famotidine 20 mg tablet 20 mg PO BID 05/05/23 05/08/23 Previous Rx's Medication Instructions Recorded acetaminophen 500 mg tablet 1,000 mg (2 x 500 mg) PO Q6H PRN 05/10/23 #30 tabs cholecalciferol (vitamin D3) 50 100 mcg (2 x 50 mcg (2,000 unit)) 05/10/23 mcg (2,000 unit) tablet (Vitamin PO DAILY #180 tabs D3) ibuprofen 600 mg tablet 600 mg PO Q6H PRN #30 tabs 05/10/23 gabapentin 100 mg capsule 100 - 200 mg (1 - 2 x 100 mg) PO 10/13/23 BID #60 caps Allergies Allergy/AdvReac Type Severity Reaction Status Date / Time latex Allergy Mild Rash Verified 05/05/23 22:51 [facility] Medical History Term ?Z34.90 - Encounter for supervision of normal , unspecified, unspecified trimester (ICD-10) SROM (spontaneous rupture of membranes) Social History What is your current living situation?: I presently have a place to live Problems where you live: no known problems In the past 12 months, utilities in danger of being shut off: no In past 12 months, lack of transportation kept you from medical appts, meetings, work, or getting things needed for daily living: no In the past 12 mos, have been you worried that your food would run out before you had money to buy more?: never true In the past 12 mos, the food you bought just didn't last and you didn't have money to buy more?: never true Smoking Status: Never smoker How often do you have a drink containing alcohol: never How often do you have six or more drinks on one occasion: Never AUDIT-C Alcohol total score: 0 Non-prescribed substance use: denies use How often does anyone, including family, friends and others, physically hurt you : never How often does anyone, including family, friends and others, insult or talk down to you: never How often does anyone, including family, friends and others, threaten you with harm: never How often does anyone, including family, friends and others, scream or curse at you: never service: No Exam Const: Vital Signs, click to edit/add: Vital Signs - 24 hr 10/13/23 04:46 Temperature 97.2 F L Pulse Rate [Pulse Oximeter] 102 H Respiratory Rate 16 Blood Pressure [Ri ght Upper Arm] 130/87 Pulse Oximetry 98 Oxygen Delivery Me thod Room Air Documenting provider has reviewed patient's vital signs: yes Common normals: no apparent distress General appearance: cooperative, comfortable and well kempt HENMT: Common normals: normocephalic Head and scalp: normocephalic Face and sinus: normal facial exam Other: Normal lips, acyanotic. Eye: Common normals: conjunctivae normal General eye: normal appearance of both eyes Conjunctiva: conjunctiva(e) normal Resp: Common normals: normal respiratory effort Effort & inspection: able to speak in complete sentences Back & Pelvis: Common normals: straight leg raise negative bilaterally (Pain is more increased with 1st 15? rather than 30-70 degree arc. Worse o) Thoracic spine/upper back: ROM limited and pain with ROM Other: No point bony tenderness to the thoracic or lumbar spine. Mild tenderness over palpation of left SI joint and paraspinal muscle tenderness. Flexion is limited to about 30? of forward bending, reporting increased pain, extension less than 5?. Spondylolisthesis testing is positive on left, negative on right. Negative axial load. Extremity: Common normals: normal capillary refill and no pedal edema Neuro: Speech: speech normal Gait (neuro): normal gait Motor exam: strength 5/5 throughout Other: Normal sensation to lower legs, normal gait and strength. Psych: Common normals: speech normal Appearance: well kempt Attitude: calm and engaged Activity/motor behavior: appropriate eye contact Speech: normal speech Insight: fair Judgement: judgment good Skin: Common normals: no rashes or lesions noted General skin exam: no rashes or lesions noted Course Course ED Course: Patient with recent MRI, additional x-ray imaging or labs are unlikely to be helpful. Her exam is fitting with the known pathology that she describes. Counseled patient that it is not ideal for us to manage chronic pain in the emergency department in the middle of the night. I encouraged her to make a follow-up appointment right away Sunday morning with her primary care provider to discuss a long-term plan. He peripheral appointment as as planned. I think she could benefit from a steroid burst. I prescribed 40 mg here in the ED then will continue on 20 mg b.i.d. for 5 days. Counseled that is okay to use [id number] sleep aids like Benadryl, melatonin as needed. She is given a incredibly limited supply of for oxycodone tablets, counseled that these cannot be refilled if she comes back to the emergency department. If additional supply is warranted, she would need to get these from her primary care doctor. She can continue her Flexeril and was counseled and given written instructions regarding total daily usage of Tylenol and ibuprofen as her primary means of pain control. I have also given her prescription for gabapentin she may take 100 mg twice daily and increase to 200 mg twice daily prior to her follow-up appointment. Further try to a lowery may be needed. Repeat course of physical therapy is encouraged. Alarm symptoms were reviewed that would warrant ED presentation. She verbalizes understanding and agreement Vital Signs Vital signs: Initial Vital Signs Temperature 97.2 F L 10/13/23 04:46 Temperature Source Temporal Artery Scan 10/13/23 04:46 Pulse Rate 102 H 10/13/23 04:46 Respiratory Rate 16 10/13/23 04:46 Blood Pressure 130/87 10/13/23 04:46 Blood Pressure Mean 101 10/13/23 04:46 Blood Pressure Position Sitting 10/13/23 04:46 Pulse Oximetry 98 10/13/23 04:46 Oxygen Delivery Method Room Air 10/13/23 04:46 Vital Signs Temperature 97.2 F L 10/13/23 04:46 Pulse Rate 102 H 10/13/23 04:46 Respiratory Rate 16 10/13/23 04:46 Blood Pressure 130/87 10/13/23 04:46 Pulse Oximetry 98 10/13/23 04:46 Oxygen Delivery Method Room Air 10/13/23 04:46 Temperature 97.2 F L 10/13/23 04:46 Pulse Rate 102 H 10/13/23 04:46 Respiratory Rate 16 10/13/23 04:46 Blood Pressure 130/87 10/13/23 04:46 Pulse Oximetry 98 10/13/23 04:46 Oxygen Delivery Method Room Air 10/13/23 04:46 Discharge Plan Discharge Instructions: Lumbar Disc Herniation (ED) Additional Instructions: As we discussed, it is not ideal for us to manage long-term pain issues in the emergency department. It is critically important that you make a follow-up appointment in person with your primary care provider this week. As the foundation of her pain control, I would like for you to take Tylenol 1000 mg every 6 hours and ibuprofen 600 mg every 6 hours. You can alternate between the 2 every 3 hours. I have placed you on a prednisone burst, this is a pack of steroids that will help decrease the inflammation in your back and will hopefully heavy feeling much better within just a few days. You may keep using the muscle relaxant that your prescribed on top of all of these medications. For pain control, I have given you a very small supply of oxycodone, 4 tablets. These cannot be refilled if you run out by an ED provider. If you do need more these you must make an in-person appointment with your primary care provider. Hopefully, the prednisone is helpful enough that you do not need any more of these. You may take 1 tablet up to 3 times daily. I have also sent a prescription for gabapentin to your pharmacy. This is a better long-term option if needed but it will need further adjustment. I have started you on a small dose, 1 pill 2 times daily. You may increase this to 1 pill in the morning and 2 in the evening and even up to 4 total pills daily prior to your appointment with your primary care doctor if needed. They may find that they want to prescribe a higher dose of this and that may be the right choice for you. Remember to continue using the Tylenol and ibuprofen even if you do not think they are helpful. Keep your specialist appointment as is currently scheduled. Come to the emergency department if you lose sudden control of your bowel or bladder or are physically unable to move your legs or if they become severely weak to the point where you cannot bear weight. Your provider will likely place a new referral to physical therapy. It is typically helpful for you to bring this paperwork with you to your follow-up appointment. Activity Level: Activity as Tolerated Discharge Diet: Regular Prescriptions: New gabapentin 100 mg capsule 100 - 200 mg PO BID Qty: 60 0RF Rx Instructions: begin with one cap 2x per day. If no relief, increase to 2 caps 2x per day after 24 hours. No Action fluticasone propion-salmeterol [Advair Diskus] 250-50 mcg/dose blister with device 1 ea INHALATION BID cetirizine 10 mg tablet 10 mg PO DAILY montelukast 10 mg tablet 10 mg PO DAILY Hold Instructions: not needed sertraline 50 mg tablet 75 mg PO Q24H famotidine 20 mg tablet 20 mg PO BID acetaminophen 500 mg Tablet 1,000 mg PO Q6H PRNQty: 30 0RF ibuprofen 600 mg Tablet 600 mg PO Q6H PRNQty: 30 0RF cholecalciferol (vitamin D3) [Vitamin D3] 50 mcg (2,000 unit) tablet 100 mcg PO DAILY Qty: 180 3RF Follow Up/Referrals: Olive Waters [facility] [Primary Care Provider] - Stand Alone Forms: [facility] Info Instructions
[2023-10-13] MEDS: hydrOXYzine pamoate 25 MG CAPSULE PO (05:29)
[2023-10-13] MEDS: OXYCODONE 5 MG TABLET PO (05:30)
[2023-10-13] MEDS: predniSONE 10 MG TABLET 40 MG PO (05:30)
== END 2023-10-13 06:00 | disposition home or self-care (01) ==
LOC: ED 05:24
PROVIDERS: Emergency Provider Family Medicine; PCP Physician Assistant Medical
DX: M54.9 Dorsalgia, unspecified (principal)
CPT/HCPCS: 99283; A9270; J7512

== ENCOUNTER 2023-11-27 09:54 | Outpatient (CLI) | payer BC, SELFPAY | END 2023-11-27 09:55 | disposition home or self-care (01) | LOC: INJ CL 09:54 | PROVIDERS: PCP Physician Assistant Medical; Visit Provider Family Medicine | DX: M54.16 Radiculopathy, lumbar region (principal); M51.36 Other intervertebral disc degeneration, lumbar region | CPT/HCPCS: 62323; J0702; Q9966 ==

== ENCOUNTER 2024-03-17 14:05 | Emergency (ER) | payer BC, SELFPAY ==
[2024-03-17] VITALS (9 sets, daily range): BP systolic 118–127; BP diastolic 73–86; PULSE 86–103; RESP 18; TEMP 36; O2SAT 95–98
--- NOTE | 2024-03-17 14:32 | ED.CHESTPAIN ---
HPI - Chest Pain General Date Seen: 03/17/24 Chief Complaint: Chest Pain Stated Complaint: Chest pain, weakness, nausea Time Seen by Provider: 03/17/24 14:19 Source: patient Mode of arrival: ambulatory Limitations: no limitations History of Present Illness HPI narrative: Patient is a 24-year-old female who presents here with a multitude of complaints. She describes chest pain for the last couple hours, the central part of her chest. When I ask about radiation she says she says that is hard to tell because she has chronic back pain in both her upper lower spine and always hurts back there, she notices nausea for the last 6 weeks, that pre seated her chest pain, she has been unable to come about the diagnosis with that with her primary care physician, as she has tried omeprazole. She notes that she will be referred to a specialist for ongoing help with this. She has a history of sinus tachycardia and his is followed by Cardiology. Today she also felt like she might pass out, she tells me she has been eating and drinking normally. There is no vomiting, denies fevers chills, or diarrhea. Denies being , as on control, history of 1 previous vaginal delivery, no personal history of any other cardiac issues in no family history. Her medications are reviewed. She tells me she is followed by a back and neck specialist. Doing physical therapy, but this is not helping. Related Data Home Medications ?Medication ?Instructions ?Recorded ?Confirmed cetirizine 10 mg tablet 10 mg PO DAILY 12/11/22 03/17/24 fluticasone 250 mcg-salmeterol 50 1 ea inhalation BID 12/11/22 03/17/24 mcg/dose blistr powdr for inhalation (Advair Diskus) sertraline 50 mg tablet 50 mg PO Q24H 12/11/22 03/17/24 pregabalin 50 mg capsule (Lyrica) 50 mg PO QDAY 11/06/23 03/17/24 hydrocodone 5 mg-acetaminophen 325 1 tab PO DAILY 03/17/24 03/17/24 mg tablet norethindrone 1 mg-ethinyl 1 tab PO DAILY 03/17/24 03/17/24 estradiol 35 mcg (21) tablet (Nortrel) omeprazole 40 mg capsule,delayed 40 mg PO DAILY 03/17/24 03/17/24 release Allergies Allergy/AdvReac Type Severity Reaction Status Date / Time amoxicillin Allergy Intermediate GI Upset Verified 03/17/24 14:17 latex Allergy Mild Rash Verified 03/17/24 14:17 Review of Systems Status of ROS Reports: 10 or more systems reviewed and unremarkable except as noted in History and below [facility] Medical History Term ?Z34.90 - Encounter for supervision of normal , unspecified, unspecified trimester (ICD-10) SROM (spontaneous rupture of membranes) Social History What is your current living situation?: I presently have a place to live Problems where you live: no known problems In the past 12 months, utilities in danger of being shut off: no In past 12 months, lack of transportation kept you from medical appts, meetings, work, or getting things needed for daily living: no In the past 12 mos, have been you worried that your food would run out before you had money to buy more?: never true In the past 12 mos, the food you bought just didn't last and you didn't have money to buy more?: never true Smoking Status: Never smoker How often do you have a drink containing alcohol: never How often do you have six or more drinks on one occasion: Never AUDIT-C Alcohol total score: 0 Non-prescribed substance use: denies use How often does anyone, including family, friends and others, physically hurt you: never How often does anyone, including family, friends and others, insult or talk down to you: never How often does anyone, including family, friends and others, threaten you with harm: never How often does anyone, including family, friends and others, scream or curse at you: never service: No Exam Narrative Exam Narrative: On examination stabilization room 2, she appears to be in no distress. Pupils equal round reactive to light there is no scleral icterus redness, TMs are normal bilaterally, oropharynx normal JVP is flat chronic chronic upstrokes are normal, cranial nerves 3-12 are normal chest is good air entry bilaterally with no wheezing crackles noted heart sounds are normal, abdomen is soft there is no guarding no organomegaly, slight obesity is noted. She moves all extremities independently well with absence of edema swelling or pain in her lower legs. Skin reveals a no petechiae rashes Const Vital Signs, click to edit/add: Vital Signs - 24 hr 03/17/24 14:11 03/17/24 14:53 03/17/24 15:00 Temperature 96.8 F L Pulse Rate 94 90 Pulse Rate [Pulse Oximeter] 103 H Pulse Rate [orthostatic lying Pulse Oximeter] Pulse Rate [orthostatic standing Pulse Oximeter] Respiratory Rate 18 Blood Pressure Blood Pressure [Right Upper Arm] 118/86 Blood Pressure [orthostatic lying Right Arm] Blood Pressure [orthostatic sitting Right Arm] Blood Pressure [orthostatic standing Right Arm] Pulse Oximetry 97 97 96 Oxygen Delivery Method Room Air 03/17/24 15:02 03/17/24 15:02 03/17/24 15:04 Temperature Pulse Rate 86 Pulse Rate [Pulse Oximeter] Pulse Rate [orthostatic lying Pulse Oximeter] 87 Pulse Rate [orthostatic standing Pulse Oximeter] Respiratory Rate Blood Pressure 123/73 Blood Pressure [Right Upper Arm] Blood Pressure [orthostatic lying Right Arm] 123/73 Blood Pressure [orthostatic sitting Right Arm] Blood Pressure [orthostatic standing Right Arm] Pulse Oximetry 95 96 Oxygen Delivery Method 03/17/24 15:05 03/17/24 15:05 03/17/24 15:05 Temperature Pulse Rate 93 Pulse Rate [Pulse Oximeter] Pulse Rate [orthostatic lying Pulse Oximeter] 100 Pulse Rate [orthostatic standing Pulse Oximeter] 103 H Respiratory Rate Blood Pressure 126/80 Blood Pressure [Right Upper Arm] Blood Pressure [orthostatic lying Right Arm] Blood Pressure [orthostatic sitting Right Arm] 126/80 Blood Pressure [orthostatic standing Right Arm] 127/85 Pulse Oximetry 96 Oxygen Delivery Method 03/17/24 15:07 03/17/24 15:30 03/17/24 16:00 Temperature Pulse Rate 92 91 88 Pulse Rate [Pulse Oximeter] Pulse Rate [orthostatic lying Pulse Oximeter] Pulse Rate [orthostatic standing Pulse Oximeter] Respiratory Rate Blood Pressure 127/85 Blood Pressure [Right Upper Arm] Blood Pressure [orthostatic lying Right Arm] Blood Pressure [orthostatic sitting Right Arm] Blood Pressure [orthostatic standing Right Arm] Pulse Oximetry 97 95 98 Oxygen Delivery Method Documenting provider has reviewed patient's vital signs: yes Course Course ED Course: Repeat EKG at 4:30 a.m., along with point of care troponin are both negative. I reviewed her laboratory tests with her. I do believe that there is is a constellation of things going on with likely some GI reflux, history of sinus tachycardia, anxiety, and the back issues. I think with her primary care physician as the lead physician here, a multi specialty workup would be needed. I explained to her the signs and symptoms of worsening when she should re present, and the importance of fluids. Her test is negative also. Vital Signs Vital signs: Initial Vital Signs Temperature 96.8 F L 03/17/24 14:11 Temperature Source Temporal Artery Scan 03/17/24 14:11 Pulse Rate 103 H 03/17/24 14:11 Respiratory Rate 18 03/17/24 14:11 Blood Pressure 118/86 03/17/24 14:11 Blood Pressure Mean 96 03/17/24 14:11 Blood Pressure Position Sitting 03/17/24 14:11 Pulse Oximetry 97 03/17/24 14:11 Oxygen Delivery Method Room Air 03/17/24 14:11 Vital Signs Temperature 96.8 F L 03/17/24 14:11 Pulse Rate 103 H 03/17/24 14:11 Respiratory Rate 18 03/17/24 14:11 Blood Pressure 118/86 03/17/24 14:11 Pulse Oximetry 97 03/17/24 14:11 Oxygen Delivery Method Room Air 03/17/24 14:11 Temperature 96.8 F L 03/17/24 14:11 Pulse Rate 88 03/17/24 16:00 Respiratory Rate 18 03/17/24 14:11 Blood Pressure 127/85 03/17/24 15:07 Pulse Oximetry 98 03/17/24 16:00 Oxygen Delivery Method Room Air 03/17/24 14:11 Medications Administered Medications: Discontinued Medications Generic Name Dose Route Start Last Admin Trade Name Freq PRN Reason Stop Dose Admin Sodium Chloride 1,000 mls @ 1,000 mls/hr 03/17/24 14:45 03/17/24 16:07 0.9 % Sodium Chloride 1000 Ml IV 03/17/24 15:44 Infused .Q1H RAUL Infusion Sodium Chloride 1,000 mls @ 1,000 mls/hr 03/17/24 15:45 03/17/24 16:47 0.9 % Sodium Chloride 1000 Ml IV 03/17/24 16:44 Infused .Q1H RAUL Infusion Ondansetron HCl 4 mg 03/17/24 14:34 03/17/24 14:58 Ondansetron 2 Mg/Ml Inj IVP 03/17/24 14:35 4 mg ONCE ONE Administration MDM - Chest Pain MDM Narrative Medical decision making narrative: During the evaluation of this patient I considered multiple differential diagnosis is. The life-threatening differential diagnosis include coronary disease/AL, pulmonary embolism, pneumothorax, pneumonia, and aortic dissection. Other differential diagnosis included but were not limited to pericarditis, myocarditis, chest wall pain, GERD, esophageal rupture, rib fracture contusion, pleurisy, as well as other etiologies. I discussed with her that we will do with the chest pain source I will not be able to come up with a diagnosis for her for her chronic nausea, there seems to be an overlying component here of also anxiety and possibly depression. She denies being suicidal at this point. We will also check a test. I was able to review her my chart, her recent liver function tests were slightly elevated. Consistent with more of a fatty liver type situation. Not consistent with the overt hepatitis. Medical Records Data Attestation: I reviewed the patient's medical records. Lab Data Labs: Lab Results 03/17/24 03/17/24 03/17/24 Range/Units 14:33 14:48 16:26 WBC 10.95 (4.50-11.00) K/uL RBC 4.77 (4.00-5.20) m/uL Hgb 13.2 (12.0-16.0) gm/dL Hct 41.2 (33.0-51.0) % MCV 86 (80-100) fL MCH 28 (26-34) pg MCHC 32 (32-36) gm/dL RDW Coeff of Hesham 13.4 (11.5-15.5) % Plt Count 300 (140-440) K/uL Neut % (Auto) 77.4 H (42.0-72.0) % Lymph % (Auto) 16.1 L (20-44) % Arthur % (Auto) 5.3 (0.0-11.0) % Eos % (Auto) 0.4 (0.0-7.0) % Baso % (Auto) 0.2 (0.0-3.0) % Neut # (Auto) 8.50 H (1.7-7.0) K/uL Lymph # (Auto) 1.80 (0.90-2.90) K/uL Arthur # (Auto) 0.60 (0.00-0.90) K/UL Eos # (Auto) 0.04 (0.00-0.50) K/uL Baso # (Auto) 0.02 (0.00-0.30) K/uL Abs Immat Gran (auto) 0.07 (0.00-0.30) K/uL Imm/Tot Granulo (auto) 0.6 % D-Dimer Quant (PE/DVT) < 0.27 (0.00-0.50) ug/ml Sodium 135 (135-149) mmol/L Potassium 3.7 (3.6-5.1) mmol/L Chloride 104 (96-114) mmol/L Carbon Dioxide 21 (20-32) mmol/L Anion Gap 10 (7-15) mEq/L BUN 10 (5-24) mg/dL Creatinine 0.6 (0.5-1.5) mg/dL Estimated GFR 130 ml/min Glucose 130 H (60-115) mg/dL Calcium 9.6 (8.4-10.6) mg/dL HCG, Qual Negative (Negative) POC Troponin I 0.00 L 0.00 L (0.01-0.04) ng/ml Discharge Plan Discharge Clinical Impression: Chest pain, Nausea, Near syncope Patient Disposition: Home, Self-Care Condition: Stable Instructions: Chest Pain (DC), Near Syncope (ED) Additional Instructions: I would suggest follow-up with Cardiology, follow-up with the GI person your primary care physician has UC. I did not find any evidence of heart issues today on the examination or issues with blood clots. I do think there has multiple things going on with you, and I think a concerted workup with your primary care physician is suggested. Return if ongoing signs and symptoms. Keep her fluids up. We will call you if your test is positive Prescriptions: No Action pregabalin [Lyrica] 50 mg capsule 50 mg PO QDAY Hold Instructions: per patient omeprazole 40 mg capsule,delayed release(DR/EC) 40 mg PO DAILY hydrocodone-acetaminophen 5-325 mg tablet 1 tab PO DAILY Nortrel (21) 1- mg-mcg (21) tablet 1 tab PO DAILY fluticasone propion-salmeterol [Advair Diskus] 250-50 mcg/dose blister with device 1 ea INHALATION BID cetirizine 10 mg tablet 10 mg PO DAILY sertraline 50 mg tablet 50 mg PO Q24H Follow Up/Referrals: Olive Waters, [facility] [Primary Care Provider] - Stand Alone [facility] Info Instructions
--- NOTE | 2024-03-17 14:33 | CRLHL7_ITS ---
For Patients: As a result of the Century Cures Act, medical imaging exams and procedure reports are released immediately into your electronic medical record. You may view this report before your referring provider. If you have questions, please contact your health care provider. INDICATION: Chest pain COMPARISON: None. TECHNIQUE: Two radiographic view(s) of the chest. FINDINGS: No substantial pleural effusion. No definite focal pulmonary consolidation. Normal heart size. No acute osseous findings. IMPRESSION: No acute thoracic findings. Dictated by Brannon Hernández MD @ 03/17/2024 3:15:48 PM (Electronically Signed)
[2024-03-17] MEDS: 0.9 % SODIUM CHLORIDE 1000 ml 1,000 ML IV ×2 (14:58→16:07)
[2024-03-17] MEDS: ONDANSETRON 2 MG/ML inj 4 MG IVP (14:58)
--- OUTSIDE RECORDS SUMMARY | 2024-03-17 15:02 | XMS_ITS ---
Author Organization [facility] Address [address] [place] [address] Care Team Providers Care Centerless Grinder Name Role Phone Unavailable Unavailable Unavailable Surgery Details Not on file Complications Check Surgery Details section. Procedure Estimated Blood Loss Check Surgery Details section. Procedure Findings Check Surgery Details section. Procedure Specimens Taken Check Surgery Details section.
--- OUTSIDE RECORDS SUMMARY | 2024-03-17 15:02 | XMS_ITS | Clinical Summary ---
Author Organization [facility] Address [address] [place] [address] Care Team Providers Care System Support Analyst Name Role Phone Unavailable Primary Care Provider Unavailabl e Source Comments Patient records contain information from all sites at [facility]. For routine questions regarding patient records, call [phone] during business hours, M-F 8:00 AM - 5:00 PM Central Time. Record requests for emergency care only can be directed to [phone] at any time.[facility] Family History Medical History Relation Name Comments [...] and Gonorrhea Screening 2002 HIV Screening 2002 Hepatitis C Screening 2002 COVID-19 Vaccine ( season) 2023 07/23/2021, 01/20/2021, 12/16/2020 Depression Screening (Annual PHQ-2) 08/27/2023 Influenza Vaccine (#1) 2024 , 06/22/2021, 06/11/2020, Additional history exists DTaP,Tdap,and Td Vaccines (8 - Td or Tdap) 03/02/2033 03/02/2023, 04/22/2014, 01/28/2007, Additional history exists Hepatitis B Vaccines Completed 01/13/2003, 2002, 2002 Pneumococcal vaccine (0-64 years) Aged Out 08/17/2003, 04/28/2003, 01/13/2003, Additional history exists No longer eligible based on patient's age to complete this topic HPV Vaccines Completed 12/09/2014, 07/27, 06/18/2014 Meningococcal Vaccine Completed 04/09/2018, 014
--- OUTSIDE RECORDS SUMMARY | 2024-03-17 15:02 | XMS_ITS | Referral Summary ---
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 For routine questions regarding patient records, call [phone] during business hours, M-F 8:00 AM - 5:00 PM Central Time. Record requests for emergency care only can be directed to [phone] at any time.[facility] Social History Tobacco Use Types Packs/Day [...]
[2024-03-17 15:05] LABS: Basophils Absolute Auto 0.02 K/uL (0.00-0.30); Basophils Percent Auto 0.2 % (0.0-3.0); Eosinophils Absolute Auto 0.04 K/uL (0.00-0.50); Eosinophils Percent Auto 0.4 % (0.0-7.0); Hematocrit 41.2 % (33.0-51.0); Hemoglobin* 13.2 gm/dL (12.0-16.0); Immature Granulocytes Abs Auto 0.07 K/uL (0.00-0.30); Immature Granulocytes Pct Auto 0.6 %; Lymphocytes Percent Auto 16.1 % (20-44); Mean Corpuscular HGB Conc 32 gm/dL (32-36); Mean Corpuscular Hemoglobin 28 pg (26-34); Mean Corpuscular Volume 86 fL (80-100); Monocytes Percent Auto 5.3 % (0.0-11.0); Neutrophils Percent Auto 77.4 % (42.0-72.0); Platelet Count* 300 K/uL (140-440); RDW Coefficient of Variation % 13.4 % (11.5-15.5); Red Blood Count 4.77 m/uL (4.00-5.20); White Blood Count* 10.95 K/uL (4.50-11.00)
[2024-03-17 15:34] LABS: Chloride* 104 mmol/L (96-114); Potassium* 3.7 mmol/L (3.6-5.1); Sodium* 135 mmol/L (135-149)
[2024-03-17 15:37] LABS: Anion Gap 10 mEq/L (7-15); Blood Urea Nitrogen* 10 mg/dL (5-24); Carbon Dioxide* 21 mmol/L (20-32); Creatinine* 0.6 mg/dL (0.5-1.5); Estimated Glomerular Filt Rate 130 ml/min; Glucose* 130 mg/dL (60-115)
[2024-03-17 15:38] LABS: Calcium* 9.6 mg/dL (8.4-10.6)
[2024-03-17 15:54] LABS: Slide Review Reflex No
[2024-03-17 16:16] LABS: D Dimer Quantitative* < 0.27 ug/ml (0.00-0.50)
[2024-03-17 16:52] LABS: HCG Qualitative Serum* Negative (Negative)
== END 2024-03-17 17:02 | disposition home or self-care (01) ==
PROVIDERS: Emergency Provider Family Medicine; PCP Physician Assistant Medical
DX: R07.9 Chest pain, unspecified (principal); R11.0 Nausea; R55 Syncope and collapse
CPT/HCPCS: 36415; 71046; 80048; 84484; 84703; 85025; 85379; 93005; 94761; 96361; 96374; 99284; 99285; J2405; J7030